=== PATIENT | male | born 1985 | race Caucasian/White ===

== ENCOUNTER 2023-08-19 07:07 | Outpatient (OUT) | payer OTHER, SELFPAY ==
[2023-08-19 08:15] LABS: Alanine Aminotransferase 37 U/L (16-63); Aspartate Amino Transferase 23 U/L (15-37)
== END 2023-08-19 07:08 | disposition home or self-care (01) ==
LOC: LAB 07:08
PROVIDERS: PCP Family Medicine; Visit Provider Family Medicine
DX: E78.5 Hyperlipidemia, unspecified (principal)
CPT/HCPCS: 36415; 84450; 84460